=== PATIENT | female | born 1930 | race Caucasian/White ===

== ENCOUNTER 2017-12-26 14:27 | Emergency (ER) | payer MEDICARE, OTHER ==
[~2017-12-26] VITALS: Ht 157.5 cm; Wt 64.9 kg
[2017-12-26 14:36] VITALS: Ht 157.5 cm; Wt 64.9 kg
[2017-12-26 15:40] VITALS: BP 164/93
== END 2017-12-26 16:41 | disposition home or self-care (01) ==
LOC: ED 14:27
DX: S20.211A Contusion of right front wall of thorax, initial encounter (principal); M54.5 Low back pain; I10 Essential (primary) hypertension; W01.190A Fall on same level from slipping, tripping and stumbling with subsequent striking against furniture, initial encounter; Y93.89 Activity, other specified; Y92.89 Other specified places as the place of occurrence of the external cause; Y99.8 Other external cause status